=== PATIENT | female | born 1960 | race Two or more races ===

== ENCOUNTER 2025-03-09 13:54 | Inpatient (IN) | payer OTHER ==
[~2025-03-09] VITALS: Ht 167.6 cm; Wt 91.6 kg
[2025-03-09] MEDS ORDERED: PRAVASTATIN SOD10 MG PO (14:10)
[2025-03-09] MEDS ORDERED: LEVOTHYROXINE25 MCG PO (14:10)
[2025-03-09] MEDS ORDERED: METFORMIN HCL1000 M2 PO (14:10)
[2025-03-09] MEDS ORDERED: ZETIA10 MG PO (14:10)
[2025-03-09] MEDS ORDERED: AUGMENTIN125 MG/5 M PO (14:10)
--- NOTE | 2025-03-09 14:36 | NUR ---
PACIENTE ALERTA Y ORIENTADA X3. REFIERE VENIR POR PALPITACIONES, MAREO Y DEBILIDAD. SE REALIZA EKG Y SE PRESENTA A DR REHMAN QUIEN REFIERE UBICAR EN AREA DE OBSERVACION. SE UBICA PACIENTE EN SECC K-6 CONECTADA A MONITOR CARDIACO Y OXIMETRIA DE PULSO CONTINUA. SE ESTIMAN VITALES Y SE UBICA.
[2025-03-09] MEDS ORDERED: DILTIAZEM HCL 25 MG/5 ML VIAL IV STA (14:49)
[2025-03-09] MEDS ORDERED: 0.9 % SODIUM CHLORIDE 1,000 ML IV STA (14:49)
[2025-03-09] MEDS ORDERED: DILTIAZEM HCL 25 MG/5 ML VIAL IV ONE (14:59)
[2025-03-09 15:31] LABS: HEMATOCRIT 39.2 % (36.0-45.00); HEMOGLOBIN 13.2 g/dL (12.0-15.00); MEAN CELL VOLUME 86.8 fL (80.00-100.00); MEAN CORPUSCULAR HEMOGLOBIN 29.4 pg (27.00-32.0); MEAN CORPUSCULAR HGB CONC 33.8 g/dl (32.0-36.0); PLATELET COUNT 276 K/uL (150-450); RED BLOOD COUNT 4.51 M/uL (4.00-6.00); RED CELL DISTRIBUTION WIDTH 13.6 % (11.5-14.5)
[2025-03-09 15:50] LABS: INR 1.05; PARTIAL THROMBOPLASTIN TIME 26.2 SECONDS (22.0-34.0); PROTHROMBIN TIME 11.4 SECONDS (9.0-11.5)
[2025-03-09 15:52] LABS: ALBUMIN 3.5 gm/dL (3.4-5.0); BILIRUBIN TOTAL 0.57 mg/dL (0.3-1.2); CREATININE SERUM 0.59 mg/dL (0.55-1.02); GFR 102.62; GLOBULINA 3.6 G/DL (2.4-3.5); POTASSIUM 4.1 mEq/L (3.5-5.1); TOTAL PROTEIN 7.1 gm/dL (6.4-8.2)
--- NOTE | 2025-03-09 15:54 | NUR ---
SE RECIBE PTE A LA UNIDAD DE CRITICO [place] DE EMERGENCIA SE UBICA EN CAMA #3 ALERTA Y ORIENTADA X3 CONECTADA A MONITOR CARDIACO Y OXIMETRIA CONTINUA EN POSICION SEMI SIM CON BARANDAS ELEVADAS. PTE CANALIZADA CON ANGIO #20 PATENTE CON DRIP DE 0.9NSS BAJANDO A 120MLS/HR. ABDOMEN DEPRESIBLE AL TACTO. EXTREMIDAD DERECHA SE OBSERVA CON EDEMA SIN ERITEMA. SE MANTIENE BAJO OBSERVACION POR CAMBIOS SIGNIFICATIVOS.
[2025-03-09 16:10] LABS: COVID-19 AG NEGATIVE (NEGATIVE); INFLUENZA A AG NEGATIVE (NEGATIVE)
[2025-03-09] MEDS ORDERED: METOPROLOL SUCCINATE 50 MG TAB.SR.24H PO SCH (18:59)
[2025-03-09] MEDS ORDERED: ENOXAPARIN SODIUM 40 MG/0.4 ML SYRINGE SUBCUTANEO SCH (20:34)
[2025-03-09] MEDS ORDERED: 0.9 % SODIUM CHLORIDE 1,000 ML IV SCH (20:45)
[2025-03-09] MEDS ORDERED: ACETAMINOPHEN 500 MG GEL..CAP PO PRN (20:45)
[2025-03-09 21:47] VITALS: BP 108/73
[2025-03-09] MEDS ORDERED: METHYLPREDNISOLONE SOD SUCC 125 MG VIAL ONE (22:43)
[2025-03-09] MEDS ORDERED: METHYLPREDNISOLONE SOD SUCC 125 MG VIAL IV ONE (22:45)
[2025-03-10] VITALS (8 sets, daily range): BP systolic 128–137; BP diastolic 58–79; O2SAT 94–98
[2025-03-10 00:31] LABS: URINE APPEARANCE Clear; URINE BILIRRUBIN Negative (NEGATIVE); URINE BLOOD Trace; URINE COLOR Yellow; URINE GLUCOSE Negative (NEGATIVE); URINE KETONE Negative (NEGATIVE); URINE LEUKOCYTE Trace; URINE NITRATE Negative; URINE PROTEIN Negative (NEGATIVE); URINE UROBILINOGEN 0.2 E.U./dl
[2025-03-10 00:34] LABS: URINE BACTERIA 13.4 uL (0.0-1933); URINE EPITHELIAL CELLS 14.7 uL (0.0-38.8); URINE RBC 2.3 uL (0.0-20.8); URINE WBC 10.2 uL (0.0-23.2)
[2025-03-10 00:41] LABS: URINE CAST 0.14 uL (0.0-1.40)
[2025-03-10] MEDS ORDERED: LEVOTHYROXINE SODIUM 100 MCG TABLET PO SCH (06:00)
[2025-03-10 08:16] LABS: CHOL HDL RATIO 3.2 (0-5.0); TSH 0.46 uIU/mL (0.358-3.74)
[2025-03-10] MEDS ORDERED: ROSUVASTATIN CALCIUM 20 MG TABLET PO SCH (09:00)
[2025-03-10] MEDS ORDERED: FAMOTIDINE/PF 20 MG in 0.9 % SODIUM CHLORIDE 8 ML IV PUSH SCH (09:00)
[2025-03-10 14:34] LABS: ABG PH 7.412 (7.35-7.45); ABG PO2 85.1 mmHg (80-100); ABG pCO2 38.1 mmHg (35-45); BASE EXCESS -0.6 mmol/l; BICARBONATE 23.7 mmol/l (23-25); SaO2 96.5 %; Tco2 24.9 mmol/l
[2025-03-10 15:36] LABS: allen test SATISFACTORY; mode ROOM AIR; o2 21 %; puncture site RADIAL RIGHT
[2025-03-10] MEDS ORDERED: METHYLPREDNISOLONE SOD SUCC 40 MG VIAL ONE (22:23)
[2025-03-10] MEDS ORDERED: METHYLPREDNISOLONE SOD SUCC 40 MG VIAL IV STA (22:25)
[2025-03-11] VITALS (9 sets, daily range): BP systolic 128–154; BP diastolic 75–90; O2SAT 96–100
[2025-03-11] MEDS ORDERED: METHYLPREDNISOLONE SOD SUCC 40 MG VIAL IV SCH (01:00)
[2025-03-11] MEDS ORDERED: DILTIAZEM HCL 30 MG TABLET PO SCH (09:00)
== END 2025-03-11 19:29 | disposition home or self-care (01) | DRG 282 ==
LOC: ER 13:54 → MEDI 21:10 → MEDJ 21:10 → MEDI 22:09
PROVIDERS: General Practice; ADMIT Internal Medicine; ATTEND Internal Medicine
PROC: BW24YZZ Computerized Tomography (CT Scan) of Chest and Abdomen using Other Contrast (ICD-10-PCS; principal; 2025-03-09)
PROC: B24BYZZ Ultrasonography of Heart with Aorta using Other Contrast (ICD-10-PCS; 2025-03-09)
PROC: 4A12X4Z Monitoring of Cardiac Electrical Activity, External Approach (ICD-10-PCS; 2025-03-10)
DX: I47.10 Supraventricular tachycardia, unspecified (principal); I21.A1 Myocardial infarction type 2; E11.9 Type 2 diabetes mellitus without complications; Z79.4 Long term (current) use of insulin; I47.19 Other supraventricular tachycardia; D72.829 Elevated white blood cell count, unspecified